=== PATIENT | male | born 1990 | race Hispanic/Latino ===

== ENCOUNTER 2017-06-04 09:49 | Emergency (ER) | payer BC ==
[2017-06-04 09:52] VITALS: BP 136/72; RESP 16; TEMP 98.2
[2017-06-04 09:54] VITALS: BMI 21.1
[2017-06-04] MEDS ORDERED: Naproxen 500 MG TAB PO STA (10:13)
[2017-06-04] MEDS ORDERED: Naproxen 500 MG TAB PO ONE (10:21)
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
--- NOTE | 2017-06-04 11:14 | CT ---
PROCEDURE: CT HEAD WITHOUT CONTRAST. HISTORY: r/o bleed COMPARISON: None available. TECHNIQUE: Axial computed tomography images were obtained through the head/brain without intravenous contrast. Radiation dose: Total exam DLP = 752.52 mGy-cm. This CT exam was performed using one or more of the following dose reduction techniques: Automated exposure control, adjustment of the mA and/or kV according to patient size, and/or use of iterative reconstruction technique. FINDINGS: HEMORRHAGE: No intracranial hemorrhage. BRAIN: No mass effect or edema. No atrophy or chronic microvascular ischemic changes. VENTRICLES: Unremarkable. No hydrocephalus. CALVARIUM: Unremarkable. PARANASAL SINUSES: Unremarkable as visualized. No significant inflammatory changes. MASTOID AIR CELLS: Unremarkable as visualized. No inflammatory changes. OTHER FINDINGS: None. IMPRESSION: Normal CT of the Head. No intracranial hemorrhage.
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
[2017-06-04 11:46] VITALS: PULSE 88; O2SAT 99
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
== END 2017-06-04 11:46 | disposition home or self-care (01) ==
LOC: H.ER 09:49
DX: S09.90XA Unspecified injury of head, initial encounter (principal); S79.911A Unspecified injury of right hip, initial encounter; S79.912A Unspecified injury of left hip, initial encounter; M25.521 Pain in right elbow; M25.532 Pain in left wrist; Y04.0XXA Assault by unarmed brawl or fight, initial encounter; Y92.89 Other specified places as the place of occurrence of the external cause; Z88.0 Allergy status to penicillin